=== PATIENT | male | born 1990 | race Caucasian/White ===

== ENCOUNTER 2017-12-28 21:43 | Emergency (ER) | payer SELFPAY ==
--- NOTE | 2017-12-28 23:14 | CT ---
CT OF BRAIN PERFORMED WITHOUT CONTRAST ENHANCEMENT: 12/28/17 HISTORY: Loss of consciousness. COMPARISON: 08/27/12 study. Ventricular and cisternal system shows no focal findings. No signs of intracerebral hemorrhage or ext ra-axial fluid collections. Mastoid air cells are clear. There is some minimal mucosal change in the right maxillary sinus. IMPRESSION: No acute intracranial abnormalities. POS: [facility]
--- NOTE | 2017-12-28 23:26 | CT ---
CT OF FACIAL BONES PERFORMED WITHOUT CONTRAST ENHANCEMENT: 12/28/17 HISTORY: Facial injury, jaw pain. The zygomatic arches and nasal bone are intact. There is minimal mucosal change in the right maxillar y sinus. There are no air fluid levels. There is no signs of any orbital or maxillary fractures. The mandible appears intact. Condyles are in normal position. IMPRESSION: No CT evidence of fracture of the facial bones. POS: [facility]
== END 2017-12-28 23:57 | disposition home or self-care (01) ==
LOC: ERS 21:43
DX: S09.90XA Unspecified injury of head, initial encounter (principal); R68.84 Jaw pain; F41.9 Anxiety disorder, unspecified; F98.8 Other specified behavioral and emotional disorders with onset usually occurring in childhood and adolescence; Z79.899 Other long term (current) drug therapy; Y04.0XXA Assault by unarmed brawl or fight, initial encounter; Y93.71 Activity, boxing
CPT/HCPCS: 70450; 70486